=== PATIENT | male | born 2000 | race American Indian/Alaskan Native ===

== ENCOUNTER 2021-11-20 00:08 | Emergency (ER) | payer SELFPAY ==
[2021-11-20] MEDS ORDERED: TETRACAINE 0.5% OPHTH SOLN 4ML OU PRN (01:30)
[2021-11-20 02:05] VITALS: BP 137/92
--- NOTE | 2021-11-20 02:09 | Emergency Department Report ---
ED Eye Problem HPI - General Chief complaint: Eye Problems Stated complaint: FOREIGN OBJECTS IN BOTH EYES Source: patient Mode of arrival: Ambulatory Limitations: No Limitations - History of Present Illness Initial comments: Patient is a 21-year-old -[place] male with no past medical history who presents to the ED with acute onset persistent bilateral eye pain with burning sensation, redness and mild discharge for the last 1 week. Patient states that the right eye is especially worse with a foreign body sensation. Patient states that the symptoms were worse in the last 1 week but he states that he had similar symptoms 3 years ago and thought that the symptoms he had 3 years ago may have come back and thinking that the foreign body still stuck in his eyes 3 years later. Patient denies vision loss, dizziness, syncope, photophobia, nausea and vomiting, fever, chills, traumatic injury, headache, nasal and sinus congestion. MD chief complaint: eye pain (bilateral), eye redness, foreign body -: Sudden, week(s) (1) Onset Description: sudden, unknown, awoke with symptoms Location: both eyes Place: home If Injury: none Eye Symptoms: burning, redness, pain, foreign body sensation, discharge Severity: moderate Severity scale (0 -10): 6 If Pain, Quality: sharp Consistency: constant Associated Symptoms: none. denies: headache, neck pain, nausea/vomiting, cough, rhinorrhea, fever, shortness of breath, other Treatments Prior to Arrival: irrigated eye - Related Data Patient Tetanus UTD: Yes Previous Rx's Medication Instructions Recorded Last Taken Type Gentamicin 0.3% Ophth Soln 1 drops OP Q4H #5 ml 11/20/21 Unknown Rx Ibuprofen [Motrin] 600 mg PO Q8H PRN #24 tablet 11/20/21 Unknown Rx Allergies Allergy/AdvReac Type Severity Reaction Status Date / Time No Known Allergies Allergy Unverified 11/20/21 01:36 ED Review of Systems ROS: Stated complaint: FOREIGN OBJECTS IN BOTH EYES Other details as noted in HPI Constitutional: denies: chills, fever Eyes: eye pain (bilateral), eye discharge. denies: vision change ENT: denies: ear pain, throat pain Respiratory: denies: cough, shortness of breath, wheezing Cardiovascular: denies: chest pain, palpitations Endocrine: no symptoms reported Gastrointestinal: denies: abdominal pain, nausea, diarrhea Genitourinary: denies: urgency, dysuria Musculoskeletal: denies: back pain, joint swelling, arthralgia Skin: denies: rash, lesions Neurological: denies: headache, weakness, paresthesias Psychiatric: denies: anxiety, depression Hematological/Lymphatic: denies: easy bleeding, easy bruising ED Past Medical Hx - Past Medical History Previous Medical History?: No - Surgical History Past Surgical History?: No - Medications Home Medications: Home Medications Medication Instructions Recorded Confirmed Last Taken Type Gentamicin 0.3% Ophth Soln 1 drops OP Q4H #5 ml 11/20/21 Unknown Rx Ibuprofen [Motrin] 600 mg PO Q8H PRN #24 tablet 11/20/21 Unknown Rx ED Physical Exam - General Limitations: No Limitations General appearance: alert, in no apparent distress - Head Head exam: Present: atraumatic, normocephalic - Eye Eye exam: Present: normal appearance, PERRL, EOMI, other (erythematous bilateral conjunctiva; no sign of corneal abrasion by fletcher lamp exam). Absent: scleral icterus Pupils: Present: normal accommodation - ENT ENT exam: Present: normal exam, normal orophraynx, mucous membranes moist, TM's normal bilaterally, normal external ear exam - Neck Neck exam: Present: normal inspection, full ROM. Absent: tenderness - Respiratory Respiratory exam: Present: normal lung sounds bilaterally. Absent: respiratory distress, wheezes, rhonchi, chest wall tenderness, accessory muscle use, decreased breath sounds, prolonged expiratory - Cardiovascular Cardiovascular Exam: Present: regular rate, normal rhythm, normal heart sounds. Absent: systolic murmur, diastolic murmur, rubs, gallop - GI/Abdominal GI/Abdominal exam: Present: soft, normal bowel sounds. Absent: distended, tenderness, guarding, rebound, rigid, hyperactive bowel sounds, hypoactive bowel sounds - Extremities Exam Extremities exam: Present: normal inspection, full ROM, normal capillary refill - Back Exam Back exam: Present: normal inspection, full ROM. Absent: tenderness, CVA tenderness (R), CVA tenderness (L), muscle spasm, paraspinal tenderness, vertebral tenderness - Neurological Exam Neurological exam: Present: alert, oriented X3, CN II-XII intact, normal gait, reflexes normal - Psychiatric Psychiatric exam: Present: normal affect, normal mood - Skin Skin exam: Present: warm, dry, intact, normal color. Absent: rash ED Medical Decision Making - Medical Decision Making This is a 21-year-old -[place] male with no past medical history who presents to the ED with acute onset persistent bilateral eye pain with burning sensation, redness and mild discharge for the last 1 week. Patient states that the right eye is especially worse with a foreign body sensation. Patient states that the symptoms were worse in the last 1 week but he states that he had similar symptoms 3 years ago and thought that the symptoms he had 3 years ago may have come back and thinking that the foreign body still stuck in his eyes 3 years later. In the ED, patient is alert and oriented x3 and is not in any distress. Patient was treated in the ED for pain with ibuprofen, tetracaine 0.5% eyedrops and fluorescein dye was used to evaluate the eyes bilaterally with Fletcher lamp. Fletcher lamp exam was unremarkable bilaterally for both eyes. Patient symptoms are likely due to conjunctivitis. Patient was therefore discha rged home on medications and advised to follow-up with his primary care physician in 7 to 10 days for reevaluation. Patient was also given a referral to the cut and print machine operator Dr. Sherita Brooks for further evaluation. Patient advised return to the ED immediately if symptoms get worse. - Differential Diagnosis viral conjunctivitis; Bacterial conjunctivitis; allergic conjunctivitis Critical care attestation.: If time is entered above; I have spent that time in minutes in the direct care of this critically ill patient, excluding procedure time. ED Disposition Clinical Impression: Acute conjunctivitis, bilateral Qualifiers: Acute conjunctivitis type: unspecified Qualified Code(s): H10.33 - Unspecified acute conjunctivitis, bilateral Disposition: 01 HOME / SELF CARE / HOMELESS Is pt being admited?: No Does the pt Need Aspirin: No Condition: Stable Instructions: Bacterial Conjunctivitis, Adult, [id number], How to Use Eye Raymundo ps and Eye Ointments Additional Instructions: Apply the eyedrops to the affected eyes as advised, take pain medication by mouth, drink plenty of fluids and follow-up with the primary care physician in 7 to 10 days for reevaluation. Consider following up with the cut and print machine operator Dr. Magallon in 3 to 5 days for reevaluation. Return to the ED immediately if symptoms get worse. Prescriptions: Gentamicin 0.3% Ophth Soln 1 drops OP Q4H #5 ml Ibuprofen [Motrin] 600 mg PO Q8H PRN #24 tablet PRN Reason: Pain Referrals: SAIMA MAGALLON MD [Staff Physician] - 3-5 Days [facility] [Provider Group] - 7-10 days Time of Disposition: 02:07 Print Language: [place]
[2021-11-20] MEDS ORDERED: IBUPROFEN 600 MG TAB PO ONE (02:30)
[2021-11-20] MEDS ORDERED: FLUORESCEIN 1 MG STRIP OP ONE (02:31)
== END 2021-11-20 03:06 | disposition home or self-care (01) ==
LOC: ED 00:08
DX: H10.9 Unspecified conjunctivitis (principal); Z79.899 Other long term (current) drug therapy
CPT/HCPCS: 99283